=== PATIENT | male | born 1950 | race Caucasian/White ===

== ENCOUNTER 2020-06-30 13:21 | Inpatient (IN) ==
[2020-06-30] MEDS ORDERED: SODIUM CHLORIDE 0.9% 1,000 ML IV STA (13:57)
[2020-06-30] MEDS ORDERED: VANCOMYCIN INJ 1,000 MG in SODIUM CHLORIDE 0.9% 250 ML IV STA (13:57)
[2020-06-30 13:59] LABS: Basophils # 0.1 10*3/uL (0.0-0.2); Basophils % 0.6 % (0.0-0.8); Eosinophils # 0.1 10*3/uL (0.0-0.87); Eosinophils % 0.6 % (0.00-10.9); Hematocrit 44.4 VOL% (42.0-52.0); Hemoglobin 14.6 GM/DL (14.0-18.0); Immature Granulocytes % 0.6 %; Immature Granulocytes Absolute 0.08 #; Lymphocytes # 1.1 10*3/uL (1.4-4.0); Lymphocytes % 8.6 % (21.2-54.2); Mean Corpuscular HGB Conc 32.9 GM/DL (32-36); Mean Corpuscular Volume 90.4 FL (87-102); Mean Platelet Volume 10.1 FL (9.6-12.0); Monocytes % 5.8 % (1.7-12.7); Neutrophils % 83.8 % (38.7-73.9); Platelet Count 380 T/CUMM (130-400); Red Blood Count 4.91 MC/CUMM (3.8-5.5); Red Cell Distribution Width 13.3 % (9.3-17.3); White Blood Count 12.5 T/CUMM (4-12)
[2020-06-30 14:19] LABS: Calcium 8.4 MG/DL (8.5-10.1); Osmolality,Calculated 284.4 MOS/KG (273-304); Potassium 3.9 MMOL/L (3.5-5.1)
[2020-06-30] MEDS ORDERED: ALBUTEROL/IPRATROPIUM 3 ML NEB RESP TX PRN (14:52)
[2020-06-30] MEDS ORDERED: MORPHINE 4 MG/1 ML VIAL IV PRN ×2 (14:52)
[2020-06-30] MEDS ORDERED: BISACODYL 5 MG TABLET PO PRN (14:52)
[2020-06-30] MEDS ORDERED: ONDANSETRON 4 MG/2 ML VIAL IV PRN (14:52)
[2020-06-30] MEDS ORDERED: ACETAMINOPHEN 325 MG TABLET PO PRN (14:52)
[2020-06-30] MEDS: LACTATED RINGERS 1,000 ML IV SCH (15:19)
[2020-06-30] MEDS ORDERED: LIDOCAINE MPF 1% /EPI 30 ML VIAL ONE (15:23)
[2020-06-30] MEDS ORDERED: BUPIVACAINE MPF 0.25% 30 ML VIAL ONE (15:23)
[2020-06-30] MEDS ORDERED: METOPROLOL TARTRATE 5 MG/5 ML VIAL IV ONE (15:38)
[2020-06-30] MEDS ORDERED: METOPROLOL TARTRATE 5 MG/5 ML VIAL IV STA (15:40)
[2020-06-30] MEDS ORDERED: LACTATED RINGERS 1,000 ML IV ONE (15:40)
[2020-06-30] MEDS: PIPERACILLIN/TAZOBACTAM 3,375 MG in SODIUM CHLORIDE 0.9% 100 ML IV SCH (15:55)
[2020-06-30 16:18] LABS: Barbiturates Screen,Urine Negative (Negative); Benzodiazepines Screen,Urine Negative (Negative); Cannabinoid Screen,Urine Negative (Negative); Opiate Screen,Urine Negative (Negative); Phencyclidine Screen,Urine Negative (Negative)
[2020-06-30] MEDS ORDERED: fentaNYL 100 MCG/2 ML VIAL ONE (16:49)
[2020-06-30] MEDS ORDERED: ROCURONIUM 50 MG/5 ML VIAL IV ONE (16:50)
[2020-06-30] MEDS ORDERED: SUCCINYLCHOLINE 200 MG/10 ML VIAL ONE (16:50)
[2020-06-30] MEDS ORDERED: LIDOCAINE 2% 5 ML VIAL ONE (16:50)
[2020-06-30] MEDS ORDERED: propofoL 200 MG/20 ML VIAL IV ONE (16:50)
[2020-06-30] MEDS ORDERED: PHENYLEPHRINE 1 MG/10 ML SYRINGE IV ONE (18:17)
[2020-06-30] MEDS ORDERED: ONDANSETRON 4 MG/2 ML VIAL ONE (18:28)
[2020-06-30] MEDS ORDERED: SEVOFLURANE 1 UNIT/15 MINUTE INH ONE (18:28)
[2020-07-01] MEDS: PIPERACILLIN/TAZOBACTAM 3,375 MG in SODIUM CHLORIDE 0.9% 100 ML IV SCH ×4 (00:27→23:12)
[2020-07-01] MEDS: LACTATED RINGERS 1,000 ML IV SCH ×2 (03:01→08:26)
[2020-07-01 05:40] LABS: Basophils # 0.1 10*3/uL (0.0-0.2); Basophils % 0.9 % (0.0-0.8); Eosinophils # 0.2 10*3/uL (0.0-0.87); Hematocrit 36.9 VOL% (42.0-52.0); Hemoglobin 11.7 GM/DL (14.0-18.0); Immature Granulocytes % 0.6 %; Immature Granulocytes Absolute 0.05 #; Lymphocytes % 12.4 % (21.2-54.2); Mean Corpuscular HGB Conc 31.7 GM/DL (32-36); Mean Corpuscular Volume 93.2 FL (87-102); Mean Platelet Volume 9.8 FL (9.6-12.0); Neutrophils % 75.1 % (38.7-73.9); Platelet Count 288 T/CUMM (130-400); Red Blood Count 3.96 MC/CUMM (3.8-5.5); Red Cell Distribution Width 13.2 % (9.3-17.3); White Blood Count 7.7 T/CUMM (4-12)
[2020-07-01 06:08] LABS: Albumin 1.8 G/DL (3.4-5.0); Calcium 7.5 MG/DL (8.5-10.1); Osmolality,Calculated 277.5 MOS/KG (273-304); Potassium 3.9 MMOL/L (3.5-5.1); Total Protein 5.1 G/DL (6.4-8.3)
[2020-07-01] MEDS ORDERED: ENOXAPARIN 40 MG/0.4 ML SYRINGE SUBCUT SCH (08:30)
[2020-07-01] MEDS ORDERED: ENOXAPARIN 100 MG/ML SYRINGE SUBCUT SCH (09:30)
[2020-07-01] MEDS: METOPROLOL TARTRATE 25 MG TABLET PO SCH ×2 (09:39→20:25)
[2020-07-01] MEDS: ASCORBIC ACID 500 MG TABLET PO SCH ×2 (09:39→20:23)
[2020-07-01] MEDS: VANCOMYCIN INJ 1,500 MG in SODIUM CHLORIDE 0.9% 500 ML IV SCH (10:04)
[2020-07-01] MEDS: SODIUM HYPOCHLORITE 0.25% IRRIG 473 ML BOTTLE TOP SCH (10:07)
[2020-07-01] MEDS: PANTOPRAZOLE 40 MG TABLET PO SCH (10:07)
[2020-07-01] MEDS: APIXABAN 5 MG TABLET PO SCH (20:25)
[2020-07-02] MEDS: VANCOMYCIN INJ 1,500 MG in SODIUM CHLORIDE 0.9% 500 ML IV SCH (04:11)
[2020-07-02 04:49] LABS: Basophils # 0.1 10*3/uL (0.0-0.2); Basophils % 1.1 % (0.0-0.8); Eosinophils # 0.3 10*3/uL (0.0-0.87); Eosinophils % 6.9 % (0.00-10.9); Hematocrit 34.8 VOL% (42.0-52.0); Hemoglobin 11.2 GM/DL (14.0-18.0); Immature Granulocytes % 0.7 %; Immature Granulocytes Absolute 0.03 #; Lymphocytes % 21.9 % (21.2-54.2); Mean Corpuscular HGB Conc 32.2 GM/DL (32-36); Mean Corpuscular Volume 92.3 FL (87-102); Monocytes % 12.4 % (1.7-12.7); Platelet Count 293 T/CUMM (130-400); Red Blood Count 3.77 MC/CUMM (3.8-5.5); Red Cell Distribution Width 13.4 % (9.3-17.3); White Blood Count 4.6 T/CUMM (4-12)
[2020-07-02 05:08] LABS: Calcium 7.5 MG/DL (8.5-10.1); Osmolality,Calculated 281.3 MOS/KG (273-304); Potassium 4.3 MMOL/L (3.5-5.1)
[2020-07-02] MEDS: PIPERACILLIN/TAZOBACTAM 3,375 MG in SODIUM CHLORIDE 0.9% 100 ML IV SCH ×3 (08:01→23:05)
[2020-07-02] MEDS: METOPROLOL TARTRATE 25 MG TABLET PO SCH (08:01)
[2020-07-02] MEDS: APIXABAN 5 MG TABLET PO SCH ×2 (08:01→21:29)
[2020-07-02] MEDS: SODIUM HYPOCHLORITE 0.25% IRRIG 473 ML BOTTLE TOP SCH (08:01)
[2020-07-02] MEDS: PANTOPRAZOLE 40 MG TABLET PO SCH (08:02)
[2020-07-02] MEDS: ASCORBIC ACID 500 MG TABLET PO SCH ×2 (08:02→21:28)
[2020-07-02] MEDS ORDERED: METOPROLOL TARTRATE 25 MG TABLET PO SCH ×2 (08:08→21:00)
[2020-07-02] MEDS ORDERED: METOPROLOL TARTRATE 5 MG/5 ML VIAL IV ONE (08:11)
[2020-07-02] MEDS ORDERED: DIGOXIN 0.5 MG/2 ML AMP IV ONE ×3 (09:38→21:30)
[2020-07-02] MEDS: SULFAMETHOX/TRIMETHOPRIM 800-160 MG TABLET PO SCH ×2 (10:41→21:29)
[2020-07-02] MEDS ORDERED: METOPROLOL TARTRATE 25 MG TABLET PO ONE ×2 (12:18→12:57)
[2020-07-02] MEDS ORDERED: METOPROLOL TARTRATE 50 MG TABLET PO SCH (12:58)
[2020-07-03] MEDS ORDERED: DIGOXIN 0.5 MG/2 ML AMP IV ONE (03:30)
[2020-07-03 05:46] LABS: Basophils # 0.1 10*3/uL (0.0-0.2); Basophils % 1.7 % (0.0-0.8); Eosinophils # 0.3 10*3/uL (0.0-0.87); Eosinophils % 6.4 % (0.00-10.9); Hematocrit 36.3 VOL% (42.0-52.0); Hemoglobin 11.8 GM/DL (14.0-18.0); Immature Granulocytes % 0.8 %; Immature Granulocytes Absolute 0.04 #; Lymphocytes % 19.4 % (21.2-54.2); Mean Corpuscular HGB Conc 32.5 GM/DL (32-36); Mean Corpuscular Volume 92.4 FL (87-102); Mean Platelet Volume 9.7 FL (9.6-12.0); Monocytes % 9.1 % (1.7-12.7); Neutrophils % 62.6 % (38.7-73.9); Platelet Count 286 T/CUMM (130-400); Red Blood Count 3.93 MC/CUMM (3.8-5.5); Red Cell Distribution Width 13.2 % (9.3-17.3); White Blood Count 5.2 T/CUMM (4-12)
[2020-07-03 06:03] LABS: Calcium 7.9 MG/DL (8.5-10.1); Osmolality,Calculated 280.3 MOS/KG (273-304); Potassium 4.5 MMOL/L (3.5-5.1)
[2020-07-03] MEDS: PIPERACILLIN/TAZOBACTAM 3,375 MG in SODIUM CHLORIDE 0.9% 100 ML IV SCH ×3 (08:35→23:29)
[2020-07-03] MEDS: PANTOPRAZOLE 40 MG TABLET PO SCH (08:35)
[2020-07-03] MEDS: SULFAMETHOX/TRIMETHOPRIM 800-160 MG TABLET PO SCH ×2 (08:35→22:15)
[2020-07-03] MEDS: APIXABAN 5 MG TABLET PO SCH ×2 (08:35→22:15)
[2020-07-03] MEDS: METOPROLOL TARTRATE 50 MG TABLET PO SCH ×2 (08:35→22:15)
[2020-07-03] MEDS: SODIUM HYPOCHLORITE 0.25% IRRIG 473 ML BOTTLE TOP SCH (08:35)
[2020-07-03] MEDS: ASCORBIC ACID 500 MG TABLET PO SCH ×2 (08:35→22:14)
[2020-07-03] MEDS: DIGOXIN 0.125 MG TABLET PO SCH (13:11)
[2020-07-03] MEDS ORDERED: DIGOXIN 0.5 MG/2 ML AMP IV SCH (21:30)
[2020-07-04 05:18] LABS: Basophils # 0.1 10*3/uL (0.0-0.2); Basophils % 1.4 % (0.0-0.8); Eosinophils # 0.3 10*3/uL (0.0-0.87); Eosinophils % 5.7 % (0.00-10.9); Hematocrit 39.7 VOL% (42.0-52.0); Hemoglobin 12.7 GM/DL (14.0-18.0); Immature Granulocytes % 0.3 %; Immature Granulocytes Absolute 0.02 #; Lymphocytes # 1.2 10*3/uL (1.4-4.0); Lymphocytes % 21.3 % (21.2-54.2); Mean Corpuscular Volume 92.8 FL (87-102); Monocytes % 8.7 % (1.7-12.7); Neutrophils % 62.6 % (38.7-73.9); Platelet Count 319 T/CUMM (130-400); Red Blood Count 4.28 MC/CUMM (3.8-5.5); Red Cell Distribution Width 13.1 % (9.3-17.3); White Blood Count 5.8 T/CUMM (4-12)
[2020-07-04 05:42] LABS: Calcium 8.3 MG/DL (8.5-10.1); Osmolality,Calculated 274.7 MOS/KG (273-304); Potassium 4.1 MMOL/L (3.5-5.1)
[2020-07-04] MEDS: PIPERACILLIN/TAZOBACTAM 3,375 MG in SODIUM CHLORIDE 0.9% 100 ML IV SCH ×3 (08:36→23:15)
[2020-07-04] MEDS: SULFAMETHOX/TRIMETHOPRIM 800-160 MG TABLET PO SCH ×2 (08:36→21:13)
[2020-07-04] MEDS: ASCORBIC ACID 500 MG TABLET PO SCH ×2 (08:37→21:14)
[2020-07-04] MEDS: APIXABAN 5 MG TABLET PO SCH ×2 (08:37→21:13)
[2020-07-04] MEDS: METOPROLOL TARTRATE 100 MG TABLET PO SCH ×2 (08:37→21:14)
[2020-07-04] MEDS: SODIUM HYPOCHLORITE 0.25% IRRIG 473 ML BOTTLE TOP SCH (08:37)
[2020-07-04] MEDS: PANTOPRAZOLE 40 MG TABLET PO SCH (08:37)
[2020-07-04] MEDS: DIGOXIN 0.125 MG TABLET PO SCH (12:33)
[2020-07-05 05:53] LABS: Basophils # 0.1 10*3/uL (0.0-0.2); Basophils % 1.5 % (0.0-0.8); Eosinophils # 0.2 10*3/uL (0.0-0.87); Eosinophils % 3.9 % (0.00-10.9); Hematocrit 39.3 VOL% (42.0-52.0); Hemoglobin 13.1 GM/DL (14.0-18.0); Immature Granulocytes % 0.3 %; Immature Granulocytes Absolute 0.02 #; Lymphocytes # 1.3 10*3/uL (1.4-4.0); Lymphocytes % 20.4 % (21.2-54.2); Mean Corpuscular HGB Conc 33.3 GM/DL (32-36); Mean Corpuscular Volume 89.5 FL (87-102); Monocytes % 8.9 % (1.7-12.7); Platelet Count 297 T/CUMM (130-400); Red Blood Count 4.39 MC/CUMM (3.8-5.5); Red Cell Distribution Width 13.2 % (9.3-17.3); White Blood Count 6.2 T/CUMM (4-12)
[2020-07-05 06:19] LABS: Calcium 8.4 MG/DL (8.5-10.1); Osmolality,Calculated 267.2 MOS/KG (273-304); Potassium 4.2 MMOL/L (3.5-5.1)
[2020-07-05] MEDS: DILTIAZEM CD 120 MG CAPSULE PO SCH (08:57)
[2020-07-05] MEDS: SULFAMETHOX/TRIMETHOPRIM 800-160 MG TABLET PO SCH ×2 (08:57→20:52)
[2020-07-05] MEDS: ASCORBIC ACID 500 MG TABLET PO SCH ×2 (08:57→20:51)
[2020-07-05] MEDS: APIXABAN 5 MG TABLET PO SCH ×2 (08:57→20:51)
[2020-07-05] MEDS: PANTOPRAZOLE 40 MG TABLET PO SCH (08:58)
[2020-07-05] MEDS: SODIUM HYPOCHLORITE 0.25% IRRIG 473 ML BOTTLE TOP SCH (08:58)
[2020-07-05] MEDS: METOPROLOL TARTRATE 100 MG TABLET PO SCH ×2 (08:58→20:52)
[2020-07-05] MEDS: DIGOXIN 0.125 MG TABLET PO SCH (12:43)
[2020-07-06 05:14] LABS: Basophils # 0.1 10*3/uL (0.0-0.2); Eosinophils # 0.2 10*3/uL (0.0-0.87); Eosinophils % 4.9 % (0.00-10.9); Hemoglobin 13.4 GM/DL (14.0-18.0); Immature Granulocytes % 1.3 %; Immature Granulocytes Absolute 0.06 #; Lymphocytes # 1.1 10*3/uL (1.4-4.0); Lymphocytes % 24.2 % (21.2-54.2); Mean Corpuscular HGB Conc 31.9 GM/DL (32-36); Mean Corpuscular Volume 91.7 FL (87-102); Mean Platelet Volume 9.7 FL (9.6-12.0); Neutrophils % 50.6 % (38.7-73.9); Platelet Count 277 T/CUMM (130-400); Red Blood Count 4.58 MC/CUMM (3.8-5.5); Red Cell Distribution Width 13.4 % (9.3-17.3); White Blood Count 4.5 T/CUMM (4-12)
[2020-07-06 05:27] LABS: Calcium 8.4 MG/DL (8.5-10.1); Potassium 4.6 MMOL/L (3.5-5.1)
[2020-07-06 05:40] LABS: Eosinophils 4 % (0-10); Lymphocytes 28 % (20-55); Platelet Estimate Normal; Segmented Neutrophils 54 % (50-85); Total Cells Counted 100
[2020-07-06] MEDS: METOPROLOL TARTRATE 100 MG TABLET PO SCH (09:12)
[2020-07-06] MEDS: APIXABAN 5 MG TABLET PO SCH (09:12)
[2020-07-06] MEDS: ASCORBIC ACID 500 MG TABLET PO SCH (09:13)
[2020-07-06] MEDS: PANTOPRAZOLE 40 MG TABLET PO SCH (09:13)
[2020-07-06] MEDS: DILTIAZEM CD 120 MG CAPSULE PO SCH (09:13)
[2020-07-06] MEDS: SULFAMETHOX/TRIMETHOPRIM 800-160 MG TABLET PO SCH (09:14)
[2020-07-06] MEDS: SODIUM HYPOCHLORITE 0.25% IRRIG 473 ML BOTTLE TOP SCH (09:14)
[2020-07-06] MEDS: DIGOXIN 0.125 MG TABLET PO SCH (12:37)
[2020-07-06 17:03] VITALS: BP 114/69
== END 2020-07-06 18:15 | disposition home health service (06) | DRG 571 ==
LOC: N.ED 13:21 → N.EDINP 14:52 → N.TELES 20:08
PROVIDERS: ADMIT Surgery; ATTEND Surgery